=== PATIENT | female | born 1970 | race Caucasian/White ===

== ENCOUNTER 2022-09-16 14:49 | Emergency (ER) | payer OTHER, BC ==
[~2022-09-16] VITALS: Ht 149.9 cm; Wt 52.6 kg
--- NOTE | 2022-09-16 14:49 | NUR ---
BIBS STATING SHE HAD A CT WITH ABNORMALITIES AND PCP REFFERED HER TO GET A PELVIC ULTRASOUND AND D-DIMER. PT STATED THAT SHE INITALLY WENT TO HER PCP BECAUSE SHE HAD CHEST PRESSURE THAT RADIATED TO HER LOWER STOMACH FOR 2 WEEKS. DENIES ANY RECENT TRAVEL. VITALS ARE WITHIN NORMAL LIMITS. AWAITING MD VICTORIA.
--- NOTE | 2022-09-16 15:58 | NUR ---
IV LINE ESTABLISHED ON LAC #20, BLOOD DRAWN AND SENT TO LAB
--- NOTE | 2022-09-16 16:01 | NUR ---
DROP WIRE STRINGER AT BEDSIDE FOR ULTRASOUND
[2022-09-16 16:08] LABS: BASOPHILS % (AUTO) 0.4 % (0.0-2.0); EOSINOPHILS % (AUTO) 1.3 % (0.0-6.0); HEMATOCRIT 42 % (33-45); HEMOGLOBIN 13.7 g/dL (11.5-14.8); LYMPHOCYTES # (AUTO) 2.4 K/uL (0.8-4.8); LYMPHOCYTES % (AUTO) 33.7 % (20.0-44.0); MEAN CORPUSCULAR HGB CONC 33 g/dl (31.0-36.0); MEAN CORPUSCULAR VOLUME 90 fL (82-100); MONOCYTES # (AUTO) 0.7 K/uL (0.1-1.30); MONOCYTES % (AUTO) 10.3 % (2.0-12.0); NEUTROPHILS # (AUTO) 3.8 K/uL (1.8-8.9); NEUTROPHILS % (AUTO) 54.3 % (43.0-81.0); PLATELET COUNT (AUTO) 248 K/uL (150-450); RED BLOOD CELL COUNT(AUTO) 4.62 MIL/uL (4.0-5.2); WHITE BLOOD COUNT (AUTO) 7.1 K/uL (4.3-11.0)
[2022-09-16 16:34] LABS: ALBUMIN 4.1 g/dL (3.4-5.0); BILIRUBIN,DIRECT 0.1 mg/dL (0.0-0.2); BILIRUBIN,TOTAL 0.4 mg/dL (0.2-1.0); CALCIUM, SERUM 9.1 mg/dL (8.5-10.1); CREATININE 1.1 mg/dL (0.6-1.3); POTASSIUM 3.6 mmol/L (3.5-5.1); TOTAL PROTEIN, SERUM 7.8 g/dL (6.4-8.2)
[2022-09-16 17:23] LABS: BILIRUBIN,URINE NEGATIVE (NEGATIVE); COLOR,URINE YELLOW (YELLOW); LEUKOCYTE ESTERASE ,URINE NEGATIVE (NEGATIVE); NITRITE, URINE NEGATIVE (NEGATIVE); PROTEIN,URINE NEGATIVE (NEGATIVE); UGLUCOSE NEGATIVE (NEGATIVE); UROBILINOGEN,URINE 0.2 EU/dL (0.2)
[2022-09-16 17:38] VITALS: BP 106/62
[2022-09-16 17:50] LABS: BACTERIA,URINE None seen /HPF (None Seen); SQUAMOUS EPITHELIAL CELL,UR 0-2 /HPF (None Seen); WBC,URINE 0-2 /HPF (0-3)
--- NOTE | 2022-09-16 17:50 | NUR ---
IV removed. Catheter intact and site benign. Pressure and 4x4 applied to site. No bleeding noted.
--- NOTE | 2022-09-16 17:51 | NUR ---
Patient discharged to home in stable condition. Written and verbal after care instructions given. Patient verbalizes understanding of instruction.
== END 2022-09-16 17:54 | disposition home or self-care (01) ==
LOC: ER 14:52
DX: R10.2 Pelvic and perineal pain (principal); Z90.89 Acquired absence of other organs
CPT/HCPCS: 36415; 76856-TC; 80048-TC; 80076-TC; 81001; 85025-TC; 85378-TC; 85730-TC; 93971-TC